=== PATIENT | female | born 1945 | race Two or more races ===

== ENCOUNTER 2021-05-22 11:57 | Outpatient (CLI) | payer OTHER ==
[2021-05-22] MEDS ORDERED: LIPITOR80 MG PO (14:11)
[2021-05-22] MEDS ORDERED: TOPROL XL25 M1 PO (14:11)
[2021-05-22] MEDS ORDERED: SINGULAIR10 MG PO (14:12)
[2021-05-22] MEDS ORDERED: IRBESARTAN75 MG PO (14:12)
[2021-05-22] MEDS ORDERED: GLUMETZA500 MG PO (14:12)
[2021-05-22] MEDS ORDERED: ADULT LOW DOSE81 M1 PO (14:13)
[2021-05-22] MEDS ORDERED: PEPCID AC20 MG PO (14:13)
== END 2021-05-22 12:04 | disposition home or self-care (01) ==
LOC: LAB 11:57
PROVIDERS: ATTEND Urology
DX: I11.9 Hypertensive heart disease without heart failure (principal)

== ENCOUNTER 2022-10-08 09:16 | Outpatient (CLI) | payer OTHER ==
[~2022-10-08 09:16] MED LIST: ADULT LOW DOSE81 M1 PO; GLUMETZA500 MG PO; IRBESARTAN75 MG PO; LIPITOR80 MG PO; PEPCID AC20 MG PO; SINGULAIR10 MG PO; TOPROL XL25 M1 PO
== END 2022-10-08 09:27 | disposition home or self-care (01) ==
LOC: SONOGRAMA 09:16
PROVIDERS: ATTEND Urology
DX: N13.4 Hydroureter (principal)